=== PATIENT | female | born 1980 | race Caucasian/White ===

== ENCOUNTER 2018-03-08 08:00 | Day surgery (SDC) | payer SELFPAY ==
[2018-03-05 09:31] VITALS: BMI 25.6
[2018-03-08] MEDS ORDERED: PROPOFOL 20 ML ONE (09:03)
[2018-03-08] MEDS ORDERED: MIDAZOLAM HCL 2 MG/2 ML SINGLE DOSE VIAL ONE (09:03)
[2018-03-08] MEDS ORDERED: fentaNYL CITRATE 250 MCG/5 ML VIAL ONE (09:03)
[2018-03-08] MEDS ORDERED: LIDOCAINE HCL/PF 2% SDV 5ML VIAL ONE (09:04)
[2018-03-08] MEDS ORDERED: DEXAMETHASONE SOD PHOSPHATE 4 MG/1 ML VIAL ONE (09:04)
[2018-03-08] MEDS ORDERED: ONDANSETRON 4 MG/2 ML VIAL ONE (09:04)
[2018-03-08] MEDS ORDERED: ceFAZolin SODIUM 1 GM VIAL ONE (10:21)
[2018-03-08] MEDS ORDERED: GENTAMICIN SO4 80 MG/2 ML VIAL ONE (10:21)
[2018-03-08] MEDS ORDERED: LIDOCAINE 1%/EPI 1:100000 (20 ML MULTI DOSE VIAL) ONE (10:21)
[2018-03-08] MEDS ORDERED: BUPIVACAINE HCL/PF 0.5% (5MG/ML) 10 ML VIAL ONE (12:13)
[2018-03-08] MEDS ORDERED: ONDANSETRON 4 MG/2 ML VIAL IVPUSH PRN (13:14)
[2018-03-08] MEDS ORDERED: oxyCODONE HCL 5 MG TABLET PO PRN ×2 (13:14)
[2018-03-08] MEDS ORDERED: LACTATED RINGERS SOLUTION 1,000 ML IV SCH (13:15)
--- NOTE | 2018-03-08 13:26 | OP ---
Operative Note - Note: Operative Date: 03/08/18 Pre-Operative Diagnosis: cosmetic Operation: Bilateral breast implant exchange, breast lift Findings: as dictated Implants: as dictated Post-Operative Diagnosis: Same as Pre-op Surgeon: Eleazar Portilol Microwave Radio Technician: Diane Israel Anesthesiologist/STRIPPING MACHINE OPERATOR: Blanca Horta Anesthesia: General, Local (20cc 1%Lidocaine with Epi injected to incision sites ) Specimens Removed: bilateral breast implants Estimated Blood Loss (mls): 40 (cc) Drains & Tubes with Location: none Blood Volume Replaced (mls): 850 (ml) Operative Report Dictated: Yes
[2018-03-08] MEDS ORDERED: oxyCODONE HCL 5 MG TABLET ONE (14:41)
[2018-03-08 15:13] VITALS: TEMP 98.2
[2018-03-08 15:51] VITALS: BP 106/68; PULSE 61
--- NOTE | 2018-03-11 17:45 | OP ---
DATE OF OPERATION: 03/08/2018 SURGEON: Dottie Portillo MD RESOURCE SPECIALIST: KEAGAN Donnelly PREOPERATIVE DIAGNOSIS: Bilateral asymmetry of breasts with cosmetic deformity. POSTOPERATIVE DIAGNOSIS: Bilateral asymmetry of breasts with cosmetic deformity. OPERATIVE PROCEDURE: Bilateral capsulotomy, removal and replacement of bilateral saline implants, and bilateral mastopexy with Watts-type pattern. OPERATIVE INDICATION: The patient is a 37-year-old white female who had previously undergone breast augmentation and now feels her breasts are too large in volume and size after many years of having these implants. The risks and benefits of surgical versus nonsurgical alternatives as well as the material complications of the procedure were described to the patient on multiple occasions preoperatively, including again today in the holding area, where the procedure was described and marked in a standing position. The patient insisted on having saline implants filled to only 150 mL volume. OPERATIVE PROCEDURE IN DETAIL: The patient was taken to the operating room and, after induction of general anesthesia in the supine position, both arms were extended and padded. Venodyne boots were placed. Attention was then turned to the markings which were made in the standing position. The previous inframammary incision was marked and injected with 1% local lidocaine anesthesia. The nipple/areolar complex, which was in a good position preoperatively, was not circumscribed. The incision was made down through the skin to the subcutaneous tissue, through the subcutaneous tissue down to the capsule on the right breast, where the capsule was then opened and the implant removed. A 330 mL saline implant was then sent to pathology. At this point, the pocket was shrunken in order to accept a new, smaller implant using both the cauterization technique and surgical capsulorrhaphy using a 0 V-Loc suture along the lateral gutter. This had been injected with 1% local lidocaine anesthesia and Marcaine. A capsulorrhaphy was carried out on the lateral portion of the gutter, closing the pocket down laterally and keeping it open medially. A 3-layered capsulorrhaphy was carried out. At this point, a [place] smooth, round, high-profile saline implant with 170 mL volume fill was filled to 150 mL volume. This was placed into the pocket and showed good shape and contour with a smaller overall volume. After this was temporarily closed in the deep layers with 3-0 PDS suture, a tailor tacking Watts pattern anchor-shaped scar was achieved from the nipple/areolar complex, measured down to 7 cm, and then along the inframammary fold, excising skin and some subcutaneous tissue to tighten the breast over the new-size implant. Good shape and contour were seen on the right breast. The exact same procedure was carried out symmetrically on the opposite breast, also placing the same saline 150 mL filled implant into the left breast. Copious irrigation with triple-antibiotic solution was carried of both breasts after the implant was placed and the patient tolerated the procedure well. The T-shaped limb was sutured with 3-0PDS suture in the deep tissue, 4-0 in a subcuticular fashion. Good shape and contour were seen in the sitting position of both breasts when the patient was sat into a sitting position and she tolerated the procedure well. She went to the recovery room with a Dermabond, Steri-Strip dressing and a compression brassiere. DOTTIE PORTILLO M.D. [id number]
--- NOTE | 2018-03-13 10:53 | PATH ---
Surgical Pathology Report Patient Name: ANDREW HARTLEY Med. Rec. #: [id number] /Age/Gender: 1980 (Age: 37) / F Account: [id number] Location: [facility] Taken: 03/08/2018 Received: 03/08/2018 Reported: 03/13/2018 Physicians: Eleazar Portillo Specimen(s) Received BILATERAL BREAST IMPLANTS Clinical History Cosmetic Final Diagnosis BREAST IMPLANTS, BILATERAL, REMOVAL: BREAST IMPLANTS (2). MACROSCOPIC DIAGNOSIS. Electronically Signed Tonja Gtz M.D. Gross Description Received fresh labeled "bilateral breast implants," are 2 clear, rubbery, intact breast implants averaging 11 cm in diameter and 4 cm in depth. No soft tissue is present. No sections are submitted, gross only. 03/12/201803/12/2018
== END 2018-03-08 16:00 | disposition home or self-care (01) ==
LOC: FASU 08:00
PROVIDERS: ATTEND Plastic Surgery
PROC: 0HRV0JZ Replacement of Bilateral Breast with Synthetic Substitute, Open Approach (ICD-10-PCS; 2018-03-08)
PROC: 0HPU0JZ Removal of Synthetic Substitute from Left Breast, Open Approach (ICD-10-PCS; 2018-03-08)
PROC: 0HPT0JZ Removal of Synthetic Substitute from Right Breast, Open Approach (ICD-10-PCS; 2018-03-08)
PROC: 0HRV0JZ Replacement of Bilateral Breast with Synthetic Substitute, Open Approach (ICD-10-PCS; 2018-03-08)
PROC: 0H0V0JZ Alteration of Bilateral Breast with Synthetic Substitute, Open Approach (ICD-10-PCS; principal; 2018-03-08 11:19)
PROC: 0HNV0ZZ Release Bilateral Breast, Open Approach (ICD-10-PCS; 2018-03-08 11:19)
DX: Z41.1 Encounter for cosmetic surgery (principal); N65.1 Disproportion of reconstructed breast; N65.0 Deformity of reconstructed breast
CPT/HCPCS: 84703; 88300-TC; 94760

== ENCOUNTER 2018-09-07 08:36 | Day surgery (SDC) | payer SELFPAY ==
[2018-09-06 12:07] VITALS: BMI 24.7
[2018-09-07] MEDS ORDERED: ONDANSETRON 4 MG/2 ML VIAL IVPUSH PRN (10:38)
[2018-09-07] MEDS ORDERED: oxyCODONE HCL 5 MG TABLET PO PRN ×2 (10:38)
[2018-09-07] MEDS ORDERED: LACTATED RINGERS SOLUTION 1,000 ML IV SCH (10:45)
[2018-09-07] MEDS ORDERED: PROPOFOL 20 ML ONE ×10 (11:05→12:50)
[2018-09-07] MEDS ORDERED: MIDAZOLAM HCL 2 MG/2 ML SINGLE DOSE VIAL ONE (11:05)
[2018-09-07] MEDS ORDERED: fentaNYL CITRATE 250 MCG/5 ML VIAL ONE (11:05)
[2018-09-07] MEDS ORDERED: ROCURONIUM BROMIDE 50 MG/5 ML VIAL ONE (11:06)
[2018-09-07] MEDS ORDERED: SUCCINYLCHOLINE CHLORIDE 200 MG/10 ML VIAL ONE (11:06)
[2018-09-07] MEDS ORDERED: DEXAMETHASONE SOD PHOSPHATE 4 MG/1 ML VIAL ONE ×3 (11:06→11:18)
[2018-09-07] MEDS ORDERED: LIDOCAINE 1%-EPI 1:100,000 30 ML MDV IJ ONE ×2 (11:12→11:26)
[2018-09-07] MEDS ORDERED: LIDOCAINE HCL/PF 2% SDV 5ML VIAL ONE (11:22)
[2018-09-07] MEDS ORDERED: ceFAZolin SODIUM 1 GM VIAL IVPB ONE (11:25)
[2018-09-07] MEDS ORDERED: LIDOCAINE 1%/EPI 1:100000 (20 ML MULTI DOSE VIAL) IJ ONE ×2 (11:38)
--- NOTE | 2018-09-07 13:30 | OP ---
Operative Note - Note: Operative Date: 09/07/18 Pre-Operative Diagnosis: breast ptosis Operation: mastopexy and reduction bilateral Post-Operative Diagnosis: Same as Pre-op Surgeon: Eleazar Portillo
[2018-09-07] MEDS ORDERED: KETOROLAC TROMETHAMINE 30 MG/1 ML VIAL IVPUSH ONE (13:52)
[2018-09-07] MEDS ORDERED: ACETAMINOPHEN 1000 MG/100 ML VIAL (NON FORMULARY) IVPB ONE (13:52)
[2018-09-07] MEDS ORDERED: ACETAMINOPHEN INJECTION 100 ML IVPB ONE (13:53)
[2018-09-07] MEDS ORDERED: KETOROLAC TROMETHAMINE 30 MG/1 ML VIAL ONE (13:53)
[2018-09-07 16:28] VITALS: TEMP 98
[2018-09-07 16:31] VITALS: BP 117/67; PULSE 77
--- NOTE | 2018-09-07 19:26 | OP ---
DATE OF OPERATION: 09/07/2018 SURGEON: Dottie Portillo M.D. PREOPERATIVE DIAGNOSIS: Bilateral breast ptosis. POSTOPERATIVE DIAGNOSIS: Bilateral breast ptosis. OPERATIVE PROCEDURE: Bilateral mastopexy with breast reduction. OPERATIVE INDICATION: The patient is a 38-year-old white female who underwent previous breast augmentation and mastopexy previously with exchange of her implant for reduction of size but is unhappy with the overall size and continues to want lower amounts of volume of her breasts. The risks and benefits of surgical versus nonsurgical alternatives as well as material complications were discussed on multiple occasions including ischemia of the nipple areolar complex due to reduction of the breast tissue. She understood that wound healing issues could recur, and that the scarring may be worse than it is right now because of multiple surgeries. She agreed to the planned procedure and wanted to proceed. All questions were asked and answered. OPERATIVE PROCEDURE IN DETAIL: Patient was taken to the operating room, and after induction of general anesthesia in the supine position, the breasts and chest wall were prepped with ChloraPrep solution. Timeout was called, and attention was turned to the markings which were made in the sitting position preoperatively. At this point the markings for mastopexy reduction were carried out in circumareolar and vertical fashion. The number 42 nipple areolar cutter was circumcised around both breasts, and then tissue was deepithelialized around the nipple complex. This was carried down to the vertical scar which had already been there from Watts pattern reduction. The patient had lots of tissue removed from the right breast, approximately 50 g of tissue from the right breast and 150 g of tissue from the left breast. The flaps were created and advanced and closed upon themselves with the new nipple areolar position, and this was closed with interrupted 3-0 Biosyn suture on the deep tissue, 2-0 Vicryl in a deep dermal fashion, and a subcuticular suture with 3-0 V-Loc Monocryl suture. She tolerated the procedure well. All wounds were dressed sterilely with Dermabond, Steri-Strips, and a compressive dressing. She was awakened, extubated, and transferred to the recovery room in satisfactory condition. DOTTIE PORTILLO M.D. [id number]
== END 2018-09-07 15:40 | disposition home or self-care (01) ==
LOC: JASU-SURG 08:36
PROVIDERS: ATTEND Plastic Surgery
CPT/HCPCS: 84703; 94760; J0131